=== PATIENT | female | born 1990 | race Caucasian/White ===

== ENCOUNTER 2018-05-08 04:48 | Inpatient (IN) | payer SELFPAY ==
[2018-05-08] MEDS: Lactated Ringers 1,000 ML 50 ML IV ×6 (05:10→20:02)
[2018-05-08 05:11] VITALS: BMI 29.1
[2018-05-08 05:28] LABS: Hematocrit 37.4 % (37-47); Hemoglobin 12.2 g/dl (12.0-15.0); Mean Corp Hgb Conc 32.6 g/gl (32-36); Mean Corpuscular Hgb 26.2 pg (27.0-32.0); Mean Corpuscular Volume 80.4 fL (81-99); Mean Platelet Vol. 11.1 fl (6.2-12.0); Platelet Count 247 K/mm3 (150-450); RBC Distribution Width CV 14.1 % (11.6-14.6); RBC Distribution Width SD 40.8 fl (35.1-43.9); Red Blood Count 4.65 M/mm3 (4.2-5.4); White Blood Count 9.5 K/mm3 (4.4-11.0)
[2018-05-08] MEDS: fentaNYL-bupivacaine (epidural) 100 ML BAG EPIDURAL ×3 (05:30→16:33)
[2018-05-08 05:34] LABS: Scan Indicated on CBC? Y/N NO
--- NOTE | 2018-05-08 07:51 | PCM.HP.OB ---
History Date of Admission: 05/08/18 Final CORAL: 05/02/18 Final CORAL Source: US <20 weeks Gestational age: 40 Weeks and 6 Days History of this : This is a 27 year-old, G [1], P [0], at 40+6 weeks gestational age who presents to triage reporting SROM for clear fluid at 0410 today. Patient soon started cleo regularly then and presented to hospital for contractions. Patient's antepartum care has been uncomplicated - initiated care at 15.4wks x 11 weeks. Allergies No Known Allergies Allergy (Verified 05/08/18 05:12) Home Medications: Home Medications Vits [Prenatabs FA] 1 tablet PO DAILY 05/08/18 Smoking Status: Never smoker Alcohol: None Number of Fetus(es): 1 Heart Tracing: Baseline 120, mild to moderate variability, few + accels, no decels TOCO Analysis: Ctx q 2-5 minutes, palpate moderately strong History Past Pregnancies: Past Pregnancies Delivery Date Name GA/Weeks Outcome Route Weight Gender Labor Length Anesthesia Delivery Location Provider FOB Labs: A+, Abs Neg, 1 hour GCT = 128, Syphilis NR, Rubella Non-Immune, HepBsaG Neg, HIV Neg, Urine Tox Neg, Urine Culture Neg, GC/CT Neg, CBC WNL, GBS Neg Expected Infant Delivery Method: Spontaneous Vaginal Describe any other labor & delivery plans:: Epidural Number of Visits: 11 Review of Systems Constitutional: Denies: Chills, Fever, Weight Change HEENT: Denies: Head Aches, Sinus Congestion, Sinus Drainage Cardiovascular: Denies: Chest Pain, Palpitations Respiratory: Denies: Cough, Shortness of breath at rest, Sputum production Gastrointestinal: Denies: Abdominal Pain, Nausea, Vomiting Genitourinary: Denies: Dysuria Gynecological: Reports: Vaginal discharge - c/w amniotic fluid Musculoskeletal: Denies: Joint Pain, Joint Tenderness Skin: Denies: Rash, Wounds Neurological: Denies: Numbness, Tingling, Focal weakness Psychiatric: Denies: Anxiety, Depression, Homicidal Ideations, Suicidal Ideations Hematologic/ Lymphatic: Denies: Easy Bruising, Easy Bleeding Physical Exam Vitals: VSS, Afebrile - see nursing notes for vital sings General: Alert, Oriented x3, No apparent distress HEENT: Atraumatic, Normocephalic. Negative for: Thyromegaly, Lymphadenopathy Cardiovascular: Regular rate, Regular Rhythm Lungs: Normal air movement Abdomen: Soft, Non Tender, Non-Distended, Gravid Neurological: Deep Tendon Reflexes 2+/4 and Symmetrical, Neuro grossly intact [employer]UD[employer]OV[employer] TECHNICIAN: Normal external genitalia. Negative for: Vulvar lesions Estimated gestational size: Appropriate for gestational size Presentation: Cephalic Cervix Dilation (cm): 3 - per Rn exam @ 0545 Station: -2 Effacement (%): 80 Assessment/Plan This is a 27 year-old, G [1], P [0], at 40 weeks gestational age, PROM, Early Labor, Category I FHT. 1) Patient admitted - epidural placed per patient request 2) Dr. Damon NASH back-up physician notified of admission 3) Consider starting IV pitocin for labor augmentation if contractions space out 4) Anticipate . Amanda Moy APRN-CNM
[2018-05-08] MEDS: Oxytocin 30 units/NS 500 ml 30 UNITS/500 ML IV.SOLN IV (08:40)
[2018-05-08] MEDS: Amnioinfusion- 0.9% NS 1,000 ML IV.SOLN. INTRA-UTER (11:33)
--- NOTE | 2018-05-08 19:06 | PCM.PN.OB ---
Subjective: Resting in bed, sitting up in captain's chair. Comfortable with epidural. at bedside. Objective: FHT: 140, minimal variability, accels, periodic variable decels, Category 2 Amnioinfusion going TOCO: Every 2-3 minutes. 9.5 cm/100%/+1 station - Physical Exam Weight: 159 lb 2.78 oz Body Mass Index (BMI) 29.1 Intake and Output for Last 24 Hours 05/06/18 05/07/18 05/08/18 23:59 23:59 23:59 Intake Total 4848 / 4848 Output Total 1600 / 1600 Balance 3248 / 3248 Laboratory Tests Past 24 Hrs 05/08/18 05/08/18 05:10 05:10 WBC 9.5 RBC 4.65 Hgb 12.2 Hct 37.4 MCV 80.4 L MCH 26.2 L MCHC 32.6 RDW 14.1 RDW Differential 40.8 Plt Count 247 MPV 11.1 Blood Type A POSITIVE Antibody Screen NEGATIVE Medical Necessity - Tobacco Use Smoking Status: Never smoker Assessment/Plan A:Active labor progressing Category 2 FHT P: 1) Labor progressing, labor down and positional change. Cervix very thin but returns after contractions. 2) Anticipate vaginal delivery. 3) updated on patient status.
[2018-05-08] MEDS: Oxytocin 30 units/NS 500 ml 30 UNITS/500 ML IV.SOLN 334 UNITS IV (22:32)
--- NOTE | 2018-05-08 22:59 | PCM.OB.VAG ---
- Problem List (1) Vaginal delivery Status: Acute Vaginal Delivery Maternal Presentation: Active Labor Amniotic Membrane Rupture Type: Spontaneous at home Amniotic Fluid Description: Clear Final CORAL: 05/02/18 Gestational age: 40 Weeks and 6 Days Date of Procedure: 05/08/18 Pre-Operative Diagnosis: SROM Post-Operative Diagnosis: Surgery/ Procedure Performed: Spontaneous Vaginal Delivery Type of Anesthesia: Epidural Description of Procedure: Progressed to complete and labored down. Attempted pushing efforts for 40 minutes and FHR decelerations with variable decels. Pushing efforts stopped for baby to recover. Pushing efforts resumed after approximately 30 minutes. of viable male over intact perineum. delivered with CAN x1, nuchal hand, and infant holding umbilical cord in hand. Infant delivered without difficulty and placed on maternal abdomen skin to skin. Spontaneous cry, mouth and nares suctioned for secretions. APGARS 8,9. Weight pending. Pitocin started for active 3rd stage management. Placenta delivered with maternal effort, via jung, 3 vessel cord, intact. Fundus firm and hemostasis achieved. EBL 200ml. Perineum inspected and intact. Mom and baby stable, family bonding well. Plannin to breastfeed. notified of delivery. Presentation: Vertex Placental Delivery Description: Spontaneous Placenta Disposition: [facility] Cord Vessel Description: 3 Vessels Nuchal Cord Compression: Without compression Cord Entanglement: Around neck x 1, loose Estimated Blood Loss: 200 ml Infant A gender: Male (1 minute): 8 (5 minute): 9 Episiotomy Description: None Laceration: None Medications given after delivery: IV Pitocin Complications: None - CANx1, nuchal hand
[2018-05-08] MEDS: Oxytocin 30 units/NS 500 ml 30 UNITS/500 ML IV.SOLN 167 UNITS IV (23:00)
--- NOTE | 2018-05-08 23:13 | OP.PCM_ITS ---
- Problem List (1) Vaginal delivery Status: Acute Vaginal Delivery Maternal Presentation: Active Labor Amniotic Membrane Rupture Type: Spontaneous at home Amniotic Fluid Description: Clear Final CORAL: 05/02/18 Gestational age: 40 Weeks and 6 Days Date of Procedure: 05/08/18 Pre-Operative Diagnosis: SROM Post-Operative Diagnosis: Surgery/ Procedure Performed: Spontaneous Vaginal Delivery Type of Anesthesia: Epidural Description of Procedure: Progressed to complete and labored down. Attempted pushing efforts for 40 minutes and FHR decelerations with variable decels. Pushing efforts stopped for baby to recover. Pushing efforts resumed after approximately 30 minutes. of viable male over intact perineum. delivered with CAN x1, nuchal hand, and infant holding umbilical cord in hand. Infant delivered without diff iculty and placed on maternal abdomen skin to skin. Spontaneous cry, mouth and nares suctioned for secretions. APGARS 8,9. Weight pending. Pitocin started for active 3rd stage management. Placenta delivered with maternal effort, via jung, 3 vessel cord, intact. Fundus firm and hemostasis achieved. EBL 200ml. Perineum inspected and intact. Mom and baby stable, family bonding well. Plannin to breastfeed. notified of delivery. Presentation: Vertex Placental Delivery Description: Spontaneous Placenta Disposition: [facility] Cord Vessel Description: 3 Vessels Nuchal Cord Compression: Without compression Cord Entanglement: Around neck x 1, loose Estimated Blood Loss: 200 ml A gender: Male (1 minute): 8 (5 minute): 9 Episiotomy Description: None Laceration: None Medications given after delivery: IV Pitocin Complications: None - CANx1, nuchal hand
[2018-05-09 00:15] VITALS: BP 123/73; PULSE 101; RESP 15; TEMP 37.2
[2018-05-09 04:00] VITALS: BP 112/72; PULSE 94; RESP 18; TEMP 37.6
--- NOTE | 2018-05-09 08:53 | PCM.PN.OB ---
Patient Problems: Active and Suspected Problems Vaginal delivery (Acute) Subjective: Doing well per patient and nursing staff. Taking PO without difficulty. Difficulty voiding and unable to get up to bathroom. Straight cath for 1300ml. Able to move both right and left leg but difficulty moving right leg. Denies any headaches, visual changes, chest pain, SOB, increased vaginal bleeding or clot. Bottlefeeding. - Physical Exam General: Alert, Oriented x3, Cooperative HEENT: Atraumatic, Normocephalic Lungs: Clear to auscultation, No rhonchi, No wheeze Cardiovascular: Regular rate, Regular Rhythm, No murmurs Abdomen: - - Fundus firm 2 below U Extremities: No edema Psych/Mental Status: Normal Affect, Appropriate Comment: Perineum inspect and bilateral labia edematous. Vital Signs Temp Pulse Resp BP 99.6 F H 94 18 112/72 05/09/18 04:00 05/09/18 04:00 05/09/18 04:00 05/09/18 04:00 Oxygen Delivery Method Room Air Weight: 159 lb 2.78 oz Body Mass Index (BMI) 29.1 Intake and Output for Last 24 Hours 05/07/18 05/08/18 05/09/18 23:59 23:59 23:59 Intake Total 4848 / 4848 500 / 500 Output Total 1600 / 1600 650 / 650 Balance 3248 / 3248 -150 / -150 Medical Necessity - Tobacco Use Smoking Status: Never smoker Assessment/Plan All Active Problems Vaginal delivery (Acute) A:PPD #1 P: 1) Routine PP care 2) Attempt to get up to bedside, sitting in chair, and to bathroom. 3) Anesthesia consulted regarding right leg numbness. If no improvement will consult physical therapy. 4) Ice to labia for edema
[2018-05-09 10:00] VITALS: BP 115/72; PULSE 87; RESP 16; TEMP 36.8
--- NOTE | 2018-05-09 10:42 | NURSING ---
1015 States her right leg feels less numb. Sits on edge of the bed, able to get there without assistance. Able to stand and bear weight and ambulate but states her leg still feels a little bit weak. Instructed to call for assistance when she wants to ambulate. States she does not feel like she needs to urinate. Ice pack to perineum which remains edematous. Abdomen soft and fundus firm.
--- NOTE | 2018-05-09 13:48 | NURSING ---
1100 States she feels the need to urinate. Ambulates to the bathroom with standby assistance. Voids 1000ml. Instructed on how to do arvind care with return demonstration. States she feels like she emptied her bladder. Returns to bed, casimiro well.
[2018-05-09 14:00] VITALS: BP 122/79; PULSE 94; RESP 16; TEMP 36.9
--- NOTE | 2018-05-09 17:18 | NURSING ---
1600 Ambulates to the bathroom with standby assistance. States she needs to urinate. Voids 800ml clear nini urine. States she feels like she emptied her bladder. States her legs feel normal and she is able to walk without difficulty. Gait normal. States she feels like she does not need assistance with ambulation and her legs feel normal.
[2018-05-09 18:00] VITALS: BP 115/73; PULSE 87; RESP 16; TEMP 36.4
[2018-05-09 21:40] VITALS: BP 125/79; PULSE 96; RESP 18; TEMP 36.8
[2018-05-10 02:00] VITALS: BP 116/79; PULSE 79; RESP 16; TEMP 36.6
--- NOTE | 2018-05-10 08:47 | PCM.PN.OB ---
Patient Problems: Active and Suspected Problems Vaginal delivery (Acute) Subjective: She doing well. She has no complaints. She feels ready to go home. Pain is controlled. Tolerating regular diet without nausea or vomiting. Ambulating and spontaneously voiding without difficulty. Lochia is decreasing. Right leg numbness and weakness has resolved. She denies lightheadedness, dizziness, chest pain, shortness of breath, leg pain. - Physical Exam General: Alert, Oriented x3 HEENT: Atraumatic Lungs: - - No increased resp effort Abdomen: Soft, Non Tender, - - FF@U-1 Extremities: No edema, No Calf Tenderness Skin: No rashes Neurological: Neuro grossly intact Psych/Mental Status: Normal Affect, Appropriate Vital Signs Temp Pulse Resp BP 97.8 F 79 16 116/79 05/10/18 02:00 05/10/18 02:00 05/10/18 02:00 05/10/18 02:00 Oxygen Delivery Method Room Air Weight: 159 lb 2.78 oz Body Mass Index (BMI) 29.1 Intake and Output for Last 24 Hours 05/08/18 05/09/18 05/10/18 23:59 23:59 23:59 Intake Total 4848 / 4848 500 / 500 Output Total 1600 / 1600 650 / 650 Balance 3248 / 3248 -150 / -150 Medical Necessity - Tobacco Use Smoking Status: Never smoker Assessment/Plan All Active Problems Vaginal delivery (Acute) PPD#2 s/p - Right leg numbness has resolved and pt ambulating without difficulty - Does not want control - Meeting all milestones and feels ready to go home - Dispo: D/c today
--- NOTE | 2018-05-10 08:51 | DCINST_ITS ---
Discharge Diet: No Restrictions Discharge Activity: May Drive, May Shower May resume sexual activity in: 4-6 weeks Weight Bearing Status: Weight bearing as tolerated Lifting Restrictions: None Call your doctor if you observe: Fever of 101 or Higher, Inability to urinate, Inability to have a bowel movement, Using more than one pad per hour, Shortness of breath, Dizziness, Chest pain, Increased palpitations (irregular heartbeat), Calf discomfort, Uncontrolled pain Additional Instructions: If you experience any of the following, contact your healthcare provider. * Bleeding that soaks a pad every hour for 2 hours * Fever 100.4 or higher * Unrelieved incision or abdominal pain * Swelling, redness, discharge or bleeding from your incision or episiotomy site * Your incision begins to separate * Problems urinating (including inability to urinate or burning while urinating). * Visual changes * Severe headache * Flu-like symptoms * Pain or redness in one of both of your breasts * Pain, warmth, tenderness or swelling in your legs, especially the calf area * Frequent nausea and vomiting * Symptoms of depression or anxiety If you experience any of the following, call 911 or go to the nearest Emergency Room. * Chest pain * Problems breathing * Seizure activity * Partial or complete paralysis of a body part, slurred speech, weakness or drooping of the face, or a sudden inability to walk or hold your balance Allergies/Adverse Reactions: Allergies No Known Allergies Allergy (Verified 05/08/18 05:12) Medications to take at Discharge Vits [Prenatabs FA] 1 tablet PO DAILY 05/08/18 When: Call to scheduled appointment in 1-2 weeks if you desire. Also call to have a appointment scheduled 4-6 weeks after your delivery. Primary Care Physician: Care Physician,No Primary [Primary Care Provider] - Test Results: Test results from this visit will be discussed in further detail at your follow- up appointment, if applicable.
[2018-05-10 09:07] VITALS: BP 115/80; PULSE 78; RESP 16; TEMP 36.4; O2SAT 97
[2018-05-10 13:30] VITALS: BP 122/77; PULSE 86; RESP 16; TEMP 36.6; O2SAT 96
--- NOTE | 2018-05-14 16:31 | NURSING ---
A voicemail message left with Anastasiia and encouraged to call if any she would have any questions or concerns. Newton MARTINEZ
== END 2018-05-10 14:40 | disposition home or self-care (01) | DRG 807 ==
PROVIDERS: Admitting Provider Obstetrics & Gynecology; Referring Provider Obstetrics & Gynecology; Visit Provider Obstetrics & Gynecology
DX: O42.02 Full-term premature rupture of membranes, onset of labor within 24 hours of rupture (principal); Z37.0 Single live birth; Z3A.40 40 weeks gestation of pregnancy; O48.0 Post-term pregnancy; O76 Abnormality in fetal heart rate and rhythm complicating labor and delivery; O69.81X0 Labor and delivery complicated by cord around neck, without compression, not applicable or unspecified
CPT/HCPCS: 59025; 59050; 85027; 86850; 86900; 99218; J7030; J7120; G0378